=== PATIENT | female | born 1935 | race African-American/Black ===

== ENCOUNTER 2017-10-26 19:59 | Emergency (ER) | payer MEDICARE, OTHER ==
[~2017-10-26] VITALS: Ht 160 cm; Wt 43.2 kg
[~2017-10-26 19:59] MED LIST: AMIODARONE HCL 50MG/ML 3ML VIAL IV ONE; AMLO10TA4; AMLO10TA4 PO; CHOL4PAC; CHOL4PAC PO; DIPHEN/ATROP; DIPHEN/ATROP PO; EPINEPHRINE 0.1MG/ML (1:10,000) 10ML SYR ONE; ESOM20CA PO; FOLI-43; FOLI-43 PO; LOP25; MAGNESIUM SULFATE 4G IN WATER 100ML PREMIX IV ONE; MEGE40TA27; MERC50TA; MERC50TA PO; METO25TA6 PO; NASOI; PRAV40TA PO; SODIUM BICARBONATE 7.5% 0.9 MEQ/ML 50ML SYR IV ONE; TRAM50TA3; UNK HTN MEDS; WARF5TAB76 PO
[2017-10-26] MEDS ORDERED: SODIUM CHLORIDE 0.9% 1,000 ML IV ONE ×2 (20:00→22:45)
[2017-10-26] MEDS ORDERED: NOREPINEPHRINE 4 MG in DEXTROSE 5% WATER 250 ML IV SCH (20:45)
[2017-10-26] MEDS ORDERED: SODIUM CHLORIDE 0.9% 1000ML BAG (SEPSIS BOLUS) IV ONE (21:00)
[2017-10-26 21:14] LABS: HEMOGLOBIN. 7.4 g/dL (12.0-16.0); MEAN CORPUSCULAR HEMOGLOBIN 35.2 pg (28.0-32.0); MEAN CORPUSCULAR VOLUME 109.2 fL (81.0-99.0); MEAN PLATELET VOLUME 8.9 fl (7.4-10.4); PLATELET 124 x1000/uL (130-400); RED CELL DISTRIBUTION WIDTH 17.9 % (11.6-14.6)
[2017-10-26 21:20] LABS: CHLORIDE 122 mEq/L (98-107)
[2017-10-26 21:21] LABS: INR 1.3; PROTHROMBIN TIME 13.3 sec (9.4-11.6)
[2017-10-26 21:24] LABS: ETHANOL BLOOD < 10 mg/dL
[2017-10-26 21:32] LABS: CLARITY URINE CLOUDY (CLEAR); COLOR URINE YELLOW (YELLOW); KETONES URINE NEGATIVE (NEGATIVE); LEUKOCYTE ESTERASE URINE TRACE (NEGATIVE); NITRITE URINE NEGATIVE (NEGATIVE); OCCULT BLOOD URINE 3+ (NEGATIVE); PH URINE 5.5 (4.5-8.0); PROTEIN URINE 1+ (NEGATIVE); SPECIFIC GRAVITY URINE 1.016 (1.005-1.030); UROBILINOGEN URINE 0.2 E.U./dL (0.2-1.0)
[2017-10-26] MEDS ORDERED: PIPERACILLIN/TAZ 3.375G PREMIX 50 ML IV ONE (21:45)
[2017-10-26] MEDS ORDERED: VANCOMYCIN 1 G PREMIX 200 ML IV ONE (21:45)
[2017-10-26] MEDS ORDERED: KCL 20MEQ/100ML PREMIX 100 ML IV ONE (21:45)
[2017-10-26 21:50] LABS: *AMPHETAMINES SCREEN URINE NEGATIVE (NEGATIVE); *BARBITURATES SCREEN URINE NEGATIVE (NEGATIVE); *BENZODIAZEPINES SCREEN URINE NEGATIVE (NEGATIVE); *COCAINE SCREEN URINE NEGATIVE (NEGATIVE); CANNABINOID URINE SCREEN NEGATIVE (NEGATIVE); METHADONE URINE SCREEN NEGATIVE (NEGATIVE); PHENCYCLIDINE URINE SCREEN NEGATIVE (NEGATIVE)
[2017-10-26 21:51] LABS: OPIATES URINE SCREEN NEGATIVE (NEGATIVE)
[2017-10-26 22:12] LABS: BG BASE EXCESS -28.7 mmol/L (-2.0-2.0); BG CARBOXYHEMOGLOBIN 0.9 % (0.5-1.5); BG FRACTION INSPIRED OXYGEN 100; BG HCO3 ACT 3.9 mmol/L (22.0-26.0); BG METHEMOGLOBIN 0.2 % (0.0-1.5); BG OXYHEMOGLOBIN 97.9 % (94.0-97.0); BG PCO2 28.6 mmHg (35.0-45.0); BG PH 6.756 (7.350-7.450); BG PO2 > 602.7 mmHg (75.0-100.0); BG SAMPLE SITE LEFT RADIAL; BG TIDAL VOLUME(mL) 450 mL; BG TOTAL HEMOGLOBIN 5.9 g/dL (12.0-18.0); BG VENT MODE VENT - A/C; BG VENT RATE 14 set
[2017-10-26 22:19] LABS: NUCLEATED RED BLOOD CELLS 9 /100 WBC; PLATELET ESTIMATE SLIGHTLY DECREASED
[2017-10-26] MEDS ORDERED: SODIUM BICARBONATE 8.4% 1 MEQ/ML 50ML SYR IV ONE ×2 (22:45)
[2017-10-27 00:30] VITALS: BP 152/77
[2017-10-27] MEDS ORDERED: EPINEPHRINE 0.1MG/ML (1:10,000) 10ML SYR ONE (01:24)
== END 2017-10-27 01:25 | disposition expired ==
LOC: ER 19:59 → EDBEDREQTM 23:04 → EDBEDREQ 23:04 → ER 10-27 01:25 → CANBEDREQ 10-27 04:42
DX: A41.9 Sepsis, unspecified organism (principal); R65.21 Severe sepsis with septic shock; N17.9 Acute kidney failure, unspecified; J96.90 Respiratory failure, unspecified, unspecified whether with hypoxia or hypercapnia; D53.9 Nutritional anemia, unspecified; N20.0 Calculus of kidney; D69.6 Thrombocytopenia, unspecified; I24.9 Acute ischemic heart disease, unspecified; E87.8 Other disorders of electrolyte and fluid balance, not elsewhere classified; I25.2 Old myocardial infarction; I25.10 Atherosclerotic heart disease of native coronary artery without angina pectoris; F03.90 Unspecified dementia, unspecified severity, without behavioral disturbance, psychotic disturbance, mood disturbance, and anxiety; R31.9 Hematuria, unspecified; D72.825 Bandemia; E87.0 Hyperosmolality and hypernatremia; E87.2 Acidosis; E87.6 Hypokalemia; I31.3 Pericardial effusion (noninflammatory); R94.31 Abnormal electrocardiogram [ECG] [EKG]; K50.90 Crohn's disease, unspecified, without complications; Z79.01 Long term (current) use of anticoagulants
CPT/HCPCS: 36415; 36556; 36600; 70450; 71045; 72125; 74176; 80053; 80305; 81003; 82375; 82805; 82962; 83605; 83690; 83735; 83880; 84484; 85025; 85610; 86850; 86900; 86901; 87040; 87086; 92950; 93005; 94002; 96361; 96365; 96366; 96368; 96375; 99291; G0482; J0282; J2543; J3370; J3475; J3480; J3490; J7030; J7060; A4315